=== PATIENT | female | born 1995 | race African-American/Black ===

== ENCOUNTER 2019-03-25 16:50 | Outpatient (CLI) | payer OTHER ==
[~2019-03-25] VITALS: Ht 152.4 cm; Wt 73.7 kg
[2019-03-25 17:13] VITALS: BP 109/57
[2019-03-25] MEDS ORDERED: TUMS500C PO (17:21)
[2019-03-25] MEDS ORDERED: PRENTAB9 PO (17:21)
[2019-03-25] MEDS ORDERED: FERR325T3 PO (17:21)
[2019-03-25] MEDS ORDERED: FOLGTAB5 PO (17:21)
--- NOTE | 2019-03-25 18:49 | HPE ---
DATE OF ADMISSION: 03/25/2019 HISTORY: This lady is a 23-year-old 1, last menstrual period (LMP) of 05/14/2018, estimated date of confinement (EDC) 03/30/2019, at 39 and 3 weeks of gestation with decreased movements. LABORATORIES: O positive. HIV negative. Hepatitis negative. Rapid plasma reagin (RPR) negative. Rubella immune. Varicella immune. Pap shows low-grade squamous intraepithelial lesion (LGSIL). Urine negative. Gonorrhea and chlamydia negative. One hour glucose 105. Group B Streptococcus (GBS) negative. She is just a recent transfer at 36 weeks from [facility]. Blood pressure is 109/57, respirations are 18, pulse 74, temperature is 98.2. Urine 1020, pH 6 and negative. PHYSICAL EXAMINATION: No distress. Symphysis fundus height is 39, vertex, occiput anterior (OA), 2 cm posterior, -3 station, 50% effaced. No vaginal bleeding or discharge. Thick cervix. Category 1 strip. Patient is having the occasional tightening with moderate variability and baseline is normal. PLAN OF MANAGEMENT: Discharge with precautions. She has an appointment with the office tomorrow morning. We gave her instructions regarding kick chart, premature rupture of membranes, bleeding and when to call the provider. We also counseled her on bringing her passport when she comes at all times. Patient was discharged undelivered.
== END 2019-03-25 18:22 | disposition home or self-care (01) ==
LOC: M LDO 16:50
PROVIDERS: ATTEND Obstetrics & Gynecology
DX: O36.8130 Decreased fetal movements, third trimester, not applicable or unspecified (principal); Z3A.39 39 weeks gestation of pregnancy
CPT/HCPCS: 59025; G0378; G0463

== ENCOUNTER 2019-03-29 09:24 | Inpatient (IN) | payer OTHER ==
[~2019-03-29] VITALS: Ht 152.4 cm; Wt 76.0 kg
[2019-03-29] VITALS (25 sets, daily range): BP systolic 105–147; BP diastolic 59–91
[~2019-03-29 09:24] MED LIST: FERR325T3 PO; FOLGTAB5 PO; PRENTAB9 PO; TUMS500C PO
[2019-03-29] MEDS ORDERED: LR 1,000 ML IV SCH (12:51)
[2019-03-29 14:00] LABS: HEMATOCRIT 31.7 % (36.0-47.0); HEMOGLOBIN 9.3 g/dl (12.0-15.5); MEAN CORPUSCULAR HEMOGLOBIN 20.6 pg (27.0-33.0); MEAN CORPUSCULAR HGB CONC 29.3 g/dl (32.0-36.5); MEAN CORPUSCULAR VOLUME 70.1 fl (80.0-96.0); PLATELET COUNT, AUTOMATED 132 10^3/uL (150-450); RED BLOOD COUNT 4.52 10^6/uL (4.00-5.40)
[2019-03-29] MEDS ORDERED: FENTANYL 2MCG/ML ROPIVACAINE 0.2% IN 0.9% NACL 100ML IVBAG As Ordered ONE (14:11)
[2019-03-29] MEDS ORDERED: REFRIGERATOR IV KEYS XX PRN (15:00)
[2019-03-29] MEDS ORDERED: ePHEDrine SULFATE 25 MG/5 ML(5MG/ML) SYRINGE IV PRN (15:00)
[2019-03-29] MEDS ORDERED: ONDANSETRON 4MG/2ML VIAL (J2405) IV PRN ×2 (15:00→23:03)
[2019-03-29] MEDS ORDERED: NALOXONE INJ 0.4 MG/1 ML VIAL (J2310) IV PRN ×3 (15:00→23:03)
[2019-03-29] MEDS ORDERED: LACTATED RINGER'S 1000 ML IV PRN (15:00)
[2019-03-29] MEDS ORDERED: diphenhydrAMINE INJ 50MG/ML VIAL (J1200) IV PRN ×2 (15:00→23:03)
[2019-03-29] MEDS ORDERED: EPIDURAL COMMENT XX SCH (15:00)
[2019-03-29] MEDS ORDERED: FENTANYL/ROPIVACAINE/NACL BAG 100 ML EPIDURAL SCH (15:00)
[2019-03-29] MEDS ORDERED: EPIDURAL/PCA KEYS XX PRN (15:00)
--- NOTE | 2019-03-29 15:27 | HPEPDOC ---
Obstetrical History & Physical General Date of Admission History of Present Illness patient is a 23 yo G1 @39+6WKS 1st trimester US KELSEY 30Mar2019 presents with concern for LOF and regular painful contractions. She was checked and ruled out ROM. denies VB. +fm. Chief Complaint: Contractions, term Age: 23 : 1 Term: 0 Pre-term: 0 Abortions: 0 Livin Care Care: Good Care Dating Final EDC: Mar 30, 2019 Final EDC for Daily Update: Mar 30, 2019 Past Medical History Past Obstetrical History : Past Obstetrical History: Primgravida [employer] History: No pertinent history Past Medical History Surgical History: Denies/None Family History Significant Family History: No pertinent family hx Social History Marital Status: * Smoker: non-smoker Alcohol: Denies Drugs: denies Imunizations Influenza Status: current Allergies Coded Allergies: No Known Allergies (Unverified , 03/25/19) Medications Scheduled Calcium Carbonate (Tums) 200 Mg Tab.chew, 2 TAB PO Q4H for cough and congestion No.137/Iron/Folic Acd ( Vitamin Tablet) 1 Each Tablet, 1 TAB PO DAILY Vit D3/Folic Acid/B2/B6/B12 (Folgard Tablet) 1 Each Tablet, 1 TAB PO DAILY Miscellaneous Medications Ferrous Sulfate (Ferrous Sulfate) 325 Mg Tablet.dr, 325 MG PO Physical Examination Physical Examination GENERAL: Alert and oriented times three. ABDOMEN: Gravid and non-tender to touch. FETUS: fetus is vertex (VTX) by Vagras. HEART RATE: Regular rate and rhythm. LUNGS: Clear to auscultation (CTA). EXTREMITIES: No edema/erytherma/tenderness. efw: 3400gm Vital Signs/I&O Vital Signs Date Time Temp Pulse Resp B/P (MAP) Pulse Ox O2 Delivery O2 Flow Rate FiO2 03/29/19 09:49 98.3 80 18 126/65 (85) Pertinent Laboratoy Data Blood Type: O+ RBC Antibody Screen: Negative HIV: Negative Hepatitis B: Negative Rapid Plasma Reagin: Nonreactive Rubella: Immune Varicella: Immune Chlamydia/Gonorrhea: Negative Group B Streptococcus: Negative (05Mar2019) Anatomy Ultrasound Placenta Location: Anterior Normal Anatomy: Yes Placenta Previa: No Vaginal Examination Dilation: 6 cm Effacement: 80% Station: -2 Cervical Consistency: Soft Cervical Position: Middle Presentation: Cephalic presentation Assessment Heart Rate (FHR): 135 Variability: Moderate Accelerations: Positive Decelerations: None Tocometer Frequency: regular, every 1-3 min. Assessment/Plan Assessment patient is a 23 yo G1 @39+6wks gestation in labor. Patient counseled on l&d monitors and risks as follows. Discussed external monitor with toco and sono for fhr. Internal monitors with IUPC and FSE as indicated. Possible use of oxytocin and AROM to augment labor as indicated. Risk of emergent delivery, infection requiring antibiotics and prolonged hospital stay, bleeding requiring blood transfusion and associated risk like anaphylatic reaction and transmission of blood borne pathogens, use of forceps and vacuum to assist vaginal delivery in an emergency or for maternal exhaustion and associated risk of vaginal tear and permanent injuries, episiotomy and pain discussed with patient. Plan Admit and orient. 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 Diet: clears Group B Streptococcus (GBS) negative. Labs and intravenous (IV) per unit protocol. Counseled on pitocin/AROM for augmentation as needed Anticipate normal spontaneous delivery (). C-S as appropriate. HOMAR JANE DO Mar 29, 2019 12:38
--- NOTE | 2019-03-29 17:05 | IPNPDOC ---
Text Note Date of Service The patient was seen on 03/29/19. NOTE Patient with epidural for pain. kyung on her own. vitals: normal NAD FHT: 140/mod mila/pos accel/ no decel toco: ctx q3-5mins ce: 8/c/-1, LOP, AROM light mec a/p patient in active labor. continue with positional changes. recheck in 2 hrs, sooner as indicated. DO Viri VS,Blaine, I+O VS, Briee, I+O Laboratory Tests 03/29/19 13:48 Vital Signs Date Time Temp Pulse Resp B/P (MAP) Pulse Ox O2 Delivery O2 Flow Rate FiO2 03/29/19 15:53 78 18 105/62 (76) 03/29/19 15:00 98.2 HOMAR JANE DO Mar 29, 2019 17:05
[2019-03-29] MEDS ORDERED: OXYTOCIN 30 UNITS IN 0.9% NaCl 500ML IV BAG (J2590) As Ordered ONE (19:18)
--- NOTE | 2019-03-29 20:18 | IPNPDOC ---
Text Note Date of Service The patient was seen on 03/29/19. NOTE patient feeling intermittent pressure vitals: normal NAD fht: 140/mod mila/pos accel/occasional variable decel toco: ctx q 2mins ce: c/c/+1 a/p patient in second stage of labor. start pushing. DO Viri VS,Fishbone, I+O VS, Fishbone, I+O Laboratory Tests 03/29/19 13:48 Vital Signs Date Time Temp Pulse Resp B/P (MAP) Pulse Ox O2 Delivery O2 Flow Rate FiO2 03/29/19 19:54 91 18 117/61 (79) 03/29/19 17:54 98.1 HOMAR JANE DO Mar 29, 2019 20:18
--- NOTE | 2019-03-29 20:33 | IPNPDOC ---
Text Note Date of Service The patient was seen on 03/29/19. NOTE Trial of pushing started. fht: 140/mod mila/no accel/recurrent variable decel toco: ctx q 2mins ce: c/c/+1, minimal movement with pushing. a/p place patient in high staples, allows for passive descent. restart pushing in 1hr. VS,Fishbone, I+O VS, Fishbone, I+O Laboratory Tests 03/29/19 13:48 Vital Signs Date Time Temp Pulse Resp B/P (MAP) Pulse Ox O2 Delivery O2 Flow Rate FiO2 03/29/19 19:54 91 18 117/61 (79) 03/29/19 17:54 98.1 HOMAR JANE DO Mar 29, 2019 20:33
[2019-03-29] MEDS ORDERED: AZITHROMYCIN INJ 500 MG, VIAL MATE ADAPTER 1 EACH in D5W 250 ML IV ONE (22:30)
[2019-03-29] MEDS ORDERED: ceFAZolin SOD 2 GM in IV 1 EA IV ONE (22:30)
[2019-03-29] MEDS ORDERED: BICITRA 30ML SOLN UDC As Ordered ONE (22:30)
[2019-03-29] MEDS ORDERED: ONDANSETRON 4MG/2ML VIAL (J2405) As Ordered ONE (22:47)
[2019-03-29] MEDS ORDERED: OXYTOCIN INJ 10 UNITS/ML VIAL (J2590) As Ordered ONE (22:47)
[2019-03-29] MEDS ORDERED: TRANEXAMIC ACID 100 MG/ML 10ML VIAL As Ordered ONE (22:47)
[2019-03-29] MEDS ORDERED: KETOROLAC 60 MG/2 ML VIAL (J1885) As Ordered ONE (22:48)
[2019-03-29] MEDS ORDERED: MORPHINE PRES-FREE INJ 10 MG/10 ML VIAL (J2274) As Ordered ONE (22:50)
[2019-03-29] MEDS ORDERED: BICITRA 30ML SOLN UDC PO ONE (23:00)
--- NOTE | 2019-03-29 23:01 | IPNPDOC ---
Text Note Date of Service The patient was seen on 03/29/19. NOTE patient has been pushing for a total of two hours. Having increased pain with epidural. vitals: normal ABD: gravid, nd, soft when not kyung. fht: 140/min mila/no accel/ recurrent variable and prolonged decel with pushing. toco: ctx q 2mins CE: c/c/+1, push to +2. A/P Patient 3 hrs in 2nd stage with 2 hrs of active pushing with minimal change in station. FHT non reassuring when pushing. Discussed with patient option and risks of forceps vs. primary section. Patient and spouse opted for primary section. Risk of infection, bleeding, injuring to surrounding organs, reoperation, post op pain, and possible injury to baby discussed. Patient expresses understanding and agrees to primary section. Ancef and azithromycin for prophy abx. back to OR once team ready. do yazmin VS,Briee, I+O VS, Fishbone, I+O Laboratory Tests 03/29/19 13:48 Vital Signs Date Time Temp Pulse Resp B/P (MAP) Pulse Ox O2 Delivery O2 Flow Rate FiO2 03/29/19 19:54 91 18 117/61 (79) 03/29/19 17:54 98.1 HOMAR JANE DO Mar 29, 2019 23:01
[2019-03-29] MEDS ORDERED: NALBUPHINE HCL 10 MG/ML AMP (J2300) IV PRN (23:03)
[2019-03-29] MEDS ORDERED: METOCLOPRAMIDE INJ 10MG/2ML VIAL (J2765) IV PRN (23:03)
[2019-03-29] MEDS ORDERED: KETAMINE HCL 200 MG/20 ML VIAL As Ordered ONE (23:26)
[2019-03-29] MEDS ORDERED: MIDAZOLAM INJ 2 MG/2 ML VIAL (J2250) As Ordered ONE (23:28)
[2019-03-30] VITALS (8 sets, daily range): BP systolic 111–137; BP diastolic 53–78
[2019-03-30] MEDS ORDERED: OXYTOCIN DRIP 30 UNITS in IV 1 EA IV SCH (00:19)
[2019-03-30] MEDS ORDERED: LR 1,000 ML IV SCH (00:19)
--- NOTE | 2019-03-30 00:28 | DNPDOC ---
[facility] Delivery Note Delivery Note DATE OF DELIVERY: 30mar2019 PREDELIVERY DIAGNOSIS: 39+6/7 weeks' gestation and labor arrest of descent non reassuring heart tracing POST DELIVERY DIAGNOSIS: delivered planceta abruption PROCEDURE: primary low transverse section CUSTOMER CARE REPRESENTATIVE: Dr. Homar Meredith DO ANESTHESIA: epidural ESTIMATED BLOOD LOSS: 800 mL. FINDINGS: 8 pound 1 ounce, 3670gm, male , Score 9/9, nuchal cord times x1. DELIVERY SUMMARY: Uncomplicated primary low transverse section. please see operative note for details. HOMAR MEREDITH DO Mar 30, 2019 00:28
[2019-03-30] MEDS ORDERED: METHYLERGONOVINE MALEATE 0.2 MG TAB PO PRN (00:30)
[2019-03-30] MEDS ORDERED: RHOGAM 300 MCG (1500 IU) INJ (J2790) IM SCH (00:30)
[2019-03-30] MEDS ORDERED: MEASLES,MUMPS,RUBELLA VACCINE INJ (MMR-II) (90707) SC SCH (00:30)
[2019-03-30] MEDS ORDERED: DOCUSATE SODIUM 100 MG CAP PO PRN (00:30)
[2019-03-30] MEDS ORDERED: PERCOCET 5MG/325MG TAB PO PRN ×2 (00:30→00:45)
[2019-03-30] MEDS ORDERED: NALBUPHINE HCL 10 MG/ML AMP (J2300) IV PRN ×2 (00:45→02:15)
[2019-03-30] MEDS ORDERED: ONDANSETRON 4MG/2ML VIAL (J2405) IV PRN ×2 (00:45→02:15)
[2019-03-30] MEDS ORDERED: MEPERIDINE INJ 25 MG/ML VIAL (J2175) IV PRN (00:45)
[2019-03-30] MEDS ORDERED: fentaNYL 100 MCG/2 ML INJECTION (J3010) IV PRN (00:45)
[2019-03-30] MEDS ORDERED: diphenhydrAMINE INJ 50MG/ML VIAL (J1200) IV PRN ×2 (00:45→02:15)
[2019-03-30] MEDS ORDERED: HYDROMORPHONE HCL 0.5 MG/ 0.5 ML SYRINGE (J1170 PER 1) IV PRN (00:45)
--- NOTE | 2019-03-30 01:01 | POST-OPPD ---
Postoperative Procedure Note Date Of Procedure: Mar 30, 2019 PREOPERATIVE DIAGNOSIS: Gravid @ 39+6wks gestation arrest of descent non reassuring heart tracing POSTOPERATIVE DIAGNOSIS: angeli placenta abruption FINDINGS: normal appearing uterus, ovaries and fallopian tubes. viable male , 9/9, 3670 grams. PROCEDURE: primary low transverse delivery SURGEON: Homar Meredith DO CABLE OPERATOR: Debra Hampton CNM ANESTHESIA: epidural SPECIMENS: none ESTIMATED BLOOD LOSS: 800 REPLACED: 1100cc LR DRAINS: 100cc urine COMPLICATIONS: none POSTOPERATIVE CONDITION: stable Indication for procedure: Patient is a 29 yo @ 39+6wks admitted for induction of labor. Patient diagnosed with arrest of descent. Description of procedure: The risks, benefits, indications and alternatives to the procedure were reviewed with the patient and informed consent was obtained. Labor epidural anesthesia was dosed for surgical analgesic. She was prepped and draped in the normal sterile fashion in the dorsal supine position with a leftward tilt. The abdomen was entered through a pfannenstiel incision. Sharp dissection taken down to fascia layer. Fascia layer entered with sharply and carried lateral and upward bilaterally. Space between fascia and rectus muscle created bluntly. The rectus muscles and peritoneum bluntly along midline and exposes the gravid uterus. Mobius retractor placed intraabdominal. The vesicouterine peritoneum was identified. A Peoples uterine incision made sharply. The uterine incision was extended superolaterally. Meconium and cord presented. Baby found to be OP. Head delivered through the hysterotomy. Nuchal cord reduced. The anterior (right) shoulder and arm delivered, followed by the posterior shoulder. Body followed with ease. Snares suctioned. The cord was clamped and cut. The was handed off to baby nurse. Pitocin bolus started. Blood collected for routine lab. The placenta delivered immediately following baby, clinically consistent with placental abruption. The uterus exteriorized. The uterus was cleared of all clots and debris. The uterine incision was repaired with a 2 layers of with 0 chromic in a running locking fashion and imbricating layer with O monocryl. Hysterotomy inspected to be hemostatic. Posterior cul-de-sac irrigated and suctioned. Uterus internalized. Gutters were cleared of clots. Hysterotomy inspected to be hemostatic. The peritoneum, fascia and muscle bellies were inspected and noted to be hemostatic. The peritoneum brought back together midline with 3-0 vicryl. The fascia approximated with 0 vicryl suture in a running fashion. The subcutaneous tissue closed with 3-0 vicryl. The skin was closed with subcuticular 4-0 Monocryl. Dressing applied. The vagina was cleared of clots. Sponge laps, needle and instruments count correct x 2. Patient taken to recovery room in stable condition. HOMAR MEREDITH DO Mar 30, 2019 00:33
[2019-03-30] MEDS ORDERED: OXYTOCIN 30 UNITS IN 0.9% NaCl 500ML IV BAG (J2590) As Ordered ONE (02:11)
[2019-03-30] MEDS ORDERED: NALOXONE INJ 0.4 MG/1 ML VIAL (J2310) IV PRN ×2 (02:15)
[2019-03-30] MEDS ORDERED: METOCLOPRAMIDE INJ 10MG/2ML VIAL (J2765) IV PRN (02:15)
[2019-03-30] MEDS: KETOROLAC 30 MG/ML VIAL (J1885) IV SCH ×3 (06:05→18:25)
--- NOTE | 2019-03-30 07:06 | IPNPDOC ---
Progress Note Date of Service: Mar 30, 2019 Day#: 1 Progress Note SUBJECT: Patient is a 23 yo s/p PLTCD for arrest of descent, POD #1 (late delivery). Munoz still in. She has not yet ambulated. Attempting breast feeding OBJECTIVE: VITAL SIGNS: Within normal limits, afebrile. Alert and oriented times three. Abdomen: Fundus firm at U-2. Soft, NTTP. LE: non pitting edema/erythema/tenderness A/P POD #1, doing well. munoz out today. encourage ambulating and bf. dressing st ays on for 7 days. routine ppc. anticipated d/c home ppd #2. Le, DO VS, I&O, 24H, Fishbone Vital Signs/I&O Vital Signs Date Time Temp Pulse Resp B/P (MAP) Pulse Ox O2 Delivery O2 Flow Rate FiO2 03/30/19 05:25 99.3 93 17 116/57 (76) 98 Room Air I&O- Last 24 Hours up to 6 AM 03/30/19 06:00 Intake Total 3805 ml Output Total 2200 ml Balance 1605 ml Laboratory Data 24H LABS Laboratory Tests 2 03/29/19 12:57: Serology Scanned Report Hepatitis B Testing 03/29/19 13:48: Nucleated Red Blood Cells % (auto) 0.0, Syphilis Serology NONREACTIVE, Hepatitis B Surface Antigen (Rapid) NEGATIVEL CBC/BMP Laboratory Tests 03/29/19 13:48 HOMAR JANE DO Mar 30, 2019 07:06
[2019-03-30] MEDS ORDERED: PRENATAL VITAMINS CHEWABLE TABLET PO SCH (09:00)
[2019-03-30] MEDS: IBUPROFEN 800 MG TAB PO SCH (23:20)
[2019-03-30] MEDS: PERCOCET 5MG/325MG TAB PO PRN (23:23)
[2019-03-31 02:00] VITALS: BP 110/55
[2019-03-31 05:52] VITALS: BP 108/55
[2019-03-31] MEDS: IBUPROFEN 800 MG TAB PO SCH ×2 (10:24→16:41)
[2019-03-31] MEDS: PERCOCET 5MG/325MG TAB PO PRN ×2 (11:31→21:29)
[2019-03-31 14:10] LABS: HEMATOCRIT 21.6 % (36.0-47.0); MEAN CORPUSCULAR VOLUME 67.7 fl (80.0-96.0); PLATELET COUNT, AUTOMATED 134 10^3/uL (150-450); RED BLOOD COUNT 3.19 10^6/uL (4.00-5.40); WHITE BLOOD COUNT 16.3 10^3/uL (4.0-10.0)
[2019-03-31 14:12] LABS: HEMOGLOBIN 6.7 g/dl (12.0-15.5)
[2019-03-31] MEDS ORDERED: IRON SUCROSE 100MG 5ML VIAL (J1756 PER 1MG) IV SCH (17:00)
--- NOTE | 2019-03-31 17:11 | IPNPDOC ---
Progress Note Date of Service: Mar 31, 2019 Day#: 2 Progress Note SUBJECT: patient seen earlier today. patient is a 23 yo s/p pltcd for arrest of descent POD #2. patient without concerns. denies dizziness. She has been ambulating, voiding spontaneously without issue and tolerating regular diet. Breast feeding without issue. lochia like a normal period. desires to take oral contraceptive for control. baby on bili lights. OBJECTIVE: VITAL SIGNS: Within normal limits, afebrile. Alert and oriented times three. Abdomen: Fundus firm at U-2. Soft, appropriately tender to palpation. LE: non pitting edema, no erythema/tenderness h/h: 6.7 A/P patient is a 23 yo pod #2 with asymptomatic anemia. discussed with patient regarding iron infusion and small risk of allergic reaction medication. patient agrees to iron infusion. discussed contraceptive options and she desires to use oral contraceptive. will prescribe nor-qd. encourage BF and ambulating. rou vinny ppc. anticipate d/c home tomorrow. DO Viri VS, I&O, 24H, Fishbone Vital Signs/I&O Vital Signs Date Time Temp Pulse Resp B/P (MAP) Pulse Ox O2 Delivery O2 Flow Rate FiO2 03/31/19 12:30 20 03/31/19 05:52 98.2 77 108/55 (72) 98 Room Air I&O- Last 24 Hours up to 6 AM 03/31/19 06:00 Intake Total 1325 ml Output Total 1500 ml Balance -175 ml Laboratory Data 24H LABS Laboratory Tests 2 03/31/19 13:45: Nucleated Red Blood Cells % (auto) 0.0 CBC/BMP Laboratory Tests 03/31/19 13:45 HOMAR JANE DO Mar 31, 2019 17:11
[2019-03-31 18:00] VITALS: BP 120/66
[2019-03-31] MEDS: IRON SUCROSE 300 MG in NS 250 ML OVER 90 MIN. IV SCH (20:31)
[2019-03-31 20:36] VITALS: BP 115/86
[2019-03-31 21:00] VITALS: BP 127/61
[2019-03-31] MEDS: METOCLOPRAMIDE INJ 10MG/2ML VIAL (J2765) IV PRN (21:42)
[2019-03-31 21:45] VITALS: BP 128/64
[2019-04-01] MEDS: IBUPROFEN 800 MG TAB PO SCH ×2 (00:06→09:33)
[2019-04-01 00:35] VITALS: BP 116/69
[2019-04-01] MEDS: PERCOCET 5MG/325MG TAB PO PRN ×2 (02:59→12:18)
[2019-04-01 06:01] VITALS: BP 123/77
--- NOTE | 2019-04-01 08:31 | IPNPDOC ---
Progress Note Date of Service: Apr 01, 2019 Day#: 3 Progress Note SUBJECT: patient is a 23 yo s/p pltcd for arrest of descent POD #3. patient without concerns. denies dizziness. She has been ambulating, voiding spontaneously without issue and tolerating regular diet. Breast feeding without issue. lochia like a normal period. desires to take oral contraceptive for control. baby on bili lights. iv iron started yesterday. OBJECTIVE: VITAL SIGNS: Within normal limits, afebrile. Alert and oriented times three. Abdomen: Fundus firm at U-2. Soft, appropriately tender to palpation. LE: non pitting edema, no erythema/tenderness h/h: 6.11/29 A/P patient is a 23 yo pod #3 with asymptomatic anemia. continue to finish IV iron infusion today. Routine ppc. discharge instructions given. d/c home if baby discharged today. DO Viri VS, I&O, 24H, Fishbone Vital Signs/I&O Vital Signs Date Time Temp Pulse Resp B/P (MAP) Pulse Ox O2 Delivery O2 Flow Rate FiO2 04/01/19 07:41 18 04/01/19 06:01 98.3 88 123/77 (92) 98 03/31/19 22:00 Room Air I&O- Last 24 Hours up to 6 AM 04/01/19 05:59 Intake Total 480 ml Balance 480 ml Laboratory Data 24H LABS Laboratory Tests 2 03/31/19 13:45: Nucleated Red Blood Cells % (auto) 0.0 CBC/BMP Laboratory Tests 03/31/19 13:45 HOMAR JANE DO Apr 01, 2019 08:31
[2019-04-01 09:30] VITALS: BP 120/63
[2019-04-01] MEDS: IRON SUCROSE 300 MG in NS 250 ML OVER 90 MIN. IV SCH (09:33)
[2019-04-01] MEDS: METOCLOPRAMIDE INJ 10MG/2ML VIAL (J2765) IV PRN (09:55)
[2019-04-01 10:05] VITALS: BP 127/60
[2019-04-01 10:55] VITALS: BP 120/57
--- NOTE | 2019-04-01 11:22 | OBDS ---
[facility] Obstetrical Discharge Sum. Obstetrical Discharge Summary Kraft Digester Operator/Provider: HOMAR JANE DO : 1 Term: 1 Pre-term: 0 Abortions: 0 Livin VDRL: Non-Reactive Rh: Positive Rubella: Immune Labor Patient presented in spontaneous labor. Progressed to c/c/+1 station. She pushed for 2 hrs with minimal change in station. heart rate tracing shows recurrent variable decels with slow return. Delivery Patient was diagnosed with arrest of descent and underwent primary low transverse delivery. Sex: Male Infant Weight: pounds (8), ounces (1), grams (3670) Anesthesia: Regional Anesthesia (epidural) A/P, Post Course List any complications Admission diagnosis: labor at term Discharge diagnosis: status post primary low transverse delivery Condition at Discharge: stable Discharge Instructions: Home Activity: as tolerated Diet: regular Medications: to be picked up at [place] Follow-up: 2 weeks incision check Hospital course: Patient admitted in active labor at 39+6wks gestation. She progressed to c/c/+1. She was diagnosed with arrest of descent and underwent an uncomplicated primary delivery. Post course uncomplicated. Patient was given iron sucrose infusion for anemia. patient discharged on day #3. HOMAR JANE DO Mar 30, 2019 00:39
--- NOTE | 2019-04-01 16:40 | IPN ---
DATE: 03/30/2019 This patient requested circumcision of her male . After discussing the risks and benefits of circumcision, the medical and nonmedical indications, the penile block and aftercare, expressed understanding of the penile block, aftercare and bleeding, signed the consent form. A 20-minute discussion. All questions were answered. We await the clearance by the pulp grinder feeder.
== END 2019-04-01 14:45 | disposition home or self-care (01) | DRG 773 ==
LOC: M LDO 09:24 → M LDI 12:53 → M OBS 03-30 01:47
PROVIDERS: ADMIT Obstetrics & Gynecology; ATTEND Obstetrics & Gynecology
PROC: 10D00Z1 Extraction of Products of Conception, Low, Open Approach (ICD-10-PCS; principal; 2019-03-30)
DX: O64.0XX0 Obstructed labor due to incomplete rotation of fetal head, not applicable or unspecified (principal); Z3A.39 39 weeks gestation of pregnancy; Z37.0 Single live birth; O99.02 Anemia complicating childbirth; D64.9 Anemia, unspecified

== ENCOUNTER 2019-05-20 01:21 | Emergency (ER) | payer OTHER ==
[~2019-05-20] VITALS: Ht 152.4 cm; Wt 62.9 kg
[2019-05-20 01:56] LABS: BASO % 0.2 % (0.0-1.0); HEMATOCRIT 44.9 % (36.0-47.0); HEMOGLOBIN 13.2 g/dl (12.0-15.5); LYMPH # 1.1 10^3/uL (1.5-5.0); LYMPH % 8.3 % (24.0-44.0); MEAN CORPUSCULAR HEMOGLOBIN 21.8 pg (27.0-33.0); MEAN CORPUSCULAR HGB CONC 29.4 g/dl (32.0-36.5); MEAN CORPUSCULAR VOLUME 74.2 fl (80.0-96.0); NEUTROPHILS # 10.8 10^3/uL (1.5-8.5); NEUTROPHILS % 83.2 % (36.0-66.0); PLATELET COUNT, AUTOMATED 251 10^3/uL (150-450); RED BLOOD COUNT 6.05 10^6/uL (4.00-5.40)
[2019-05-20 02:14] LABS: HCG, SERUM QUALITATIVE NEGATIVE (NEGATIVE)
[2019-05-20 02:23] LABS: BLOOD UREA NITROGEN 12 MG/DL (7-18); CALCIUM LEVEL 9.5 MG/DL (8.5-10.1); CARBON DIOXIDE LEVEL 26 MEQ/L (21-32); CHLORIDE LEVEL 101 MEQ/L (98-107); CREATININE FOR GFR 1.04 MG/DL (0.55-1.30); GLOMERULAR FILTRATION RATE > 60.0 (>60); GLUCOSE, FASTING 91 MG/DL (70-100); POTASSIUM SERUM 3.9 MEQ/L (3.5-5.1); SODIUM LEVEL 136 MEQ/L (136-145); THYROID STIMULATING HORMONE 0.451 uIU/ML (0.358-3.740)
--- NOTE | 2019-05-20 02:43 | REPVR ---
PROCEDURE INFORMATION: Exam: CT Head Without Contrast Exam date and time: 05/20/2019 1:43 AM Age: 24 years old Clinical indication: Injury or trauma; Fall; Initial encounter; Concussion / head injury; Consciousness not specified; Additional info: Fell hitting head on floor TECHNIQUE: Imaging protocol: Computed tomography of the head without contrast. Radiation optimization: All CT scans at this facility use at least one of these dose optimization techniques: automated exposure control; mA and/or kV adjustment per patient size (includes targeted exams where dose is matched to clinical indication); or iterative reconstruction. COMPARISON: No relevant prior studies available. FINDINGS: Brain: No intracranial mass, mass effect or midline shift. No acute intracranial hemorrhage. No CT evidence of acute cortical infarct. Ventricles: Ventricles, cisterns, and sulci are normal in size for age. Bones/joints: No calvarial fracture or destructive process. Sinuses: Frontal and ethmoid sinus mucosal thickening is present. Mastoid air cells: Mastoid air cells are normally aerated. Orbits: Imaged orbits are unremarkable. Soft tissues: No focal extracranial soft tissue swelling. IMPRESSION: No acute or concerning focal intracranial abnormality. Electronically signed by: Cristino Cardona On 05/20/2019 02:42:52 AM
--- NOTE | 2019-05-20 02:44 | REPVR ---
PROCEDURE INFORMATION: Exam: CT Cervical Spine Without Contrast Exam date and time: 05/20/2019 1:43 AM Age: 24 years old Clinical indication: Neck pain; Additional info: Fell hitting head on floor TECHNIQUE: Imaging protocol: Computed tomography images of the cervical spine without contrast. Radiation optimization: All CT scans at this facility use at least one of these dose optimization techniques: automated exposure control; mA and/or kV adjustment per patient size (includes targeted exams where dose is matched to clinical indication); or iterative reconstruction. COMPARISON: No relevant prior studies available. FINDINGS: Vertebrae: No segmental vertebral malalignment. Vertebral body height is maintained at all levels. No acute fracture. No destructive or blastic cervical spine osseous lesion. Discs/Spinal canal/Neural foramina: Intervertebral disc spaces are appropriate for age. Soft tissues: Soft tissues show no concerning abnormality or asymmetry. Lungs: Imaged lung apices demonstrate no concerning abnormality. Pleural space: No apical pneumothorax. IMPRESSION: No acute fracture or traumatic segmental cervical malalignment. Electronically signed by: Cristino Cardona On 05/20/2019 02:43:38 AM
[2019-05-20] MEDS ORDERED: ACETAMINOPHEN TAB 650MG DOSE (2X325MG) PO ONE (02:45)
[2019-05-20 03:29] LABS: INFLUENZA A AMPLIFICATION NEGATIVE (NEGATIVE); INFLUENZA B AMPLIFICATION NEGATIVE (NEGATIVE)
[2019-05-20] MEDS ORDERED: NS 1,000 ML IV ONE (03:45)
[2019-05-20] MEDS ORDERED: AMOXICILLIN 500 MG CAP PO ONE (03:45)
[2019-05-20 04:30] VITALS: BP 113/62
[2019-05-20] MEDS ORDERED: AMOX500C PO (04:49)
--- NOTE | 2019-05-20 06:40 | ECGEPIP ---
[facility] - ED Test Date: 2019-05-20 Pat Name: QUENTIN PELAYO Department: Room: - Gender: Female Yoke Setter: KCJ : 1995 Requested By: CHRISTINE Noonan Order Number: [id number] Reading MD: Yon Fernandes Measurements Intervals Cope Rate: 114 P: 67 HI: 154 QRS: 89 QRSD: 80 T: -65 QT: 285 QTc: 393 Interpretive Statements SINUS TACHYCARDIA WITH OCCASIONAL ECTOPIC PREMATURE COMPLEXES NSTTW ABNORMALITIES NO PRIORS FOR COMPARISON Electronically Signed on 05-20-2019 6:40:20 EST by Yon Fernandes
== END 2019-05-20 05:02 | disposition home or self-care (01) ==
LOC: M ED 01:21
DX: R55 Syncope and collapse (principal); J02.0 Streptococcal pharyngitis